=== PATIENT | male | born 1980 | race Hispanic/Latino ===

== ENCOUNTER 2020-06-04 11:54 | Inpatient (IN) | payer OTHER ==
[~2020-06-04] VITALS: Ht 175.3 cm; Wt 124.3 kg
[2020-06-04 13:45] LABS: BASOPHILS % (AUTO) 0.2 % (0.0-5.0); EOSINOPHILS % (AUTO) 0.5 % (0.0-8.0); HEMATOCRIT 45.1 % (42-54); LYMPHOCYTES % (AUTO) 8.3 % (21.0-51.0); MEAN CORPUSCULAR HEMOGLOBIN 28.8 pg (27.0-33.0); MEAN CORPUSCULAR HGB CONC 33.3 g/dL (32.0-36.0); MEAN CORPUSCULAR VOLUME 86.6 fL (79-99); MONOCYTES % (AUTO) 8.2 % (3.0-13.0); NEUTROPHILS % (AUTO) 82.6 % (40.0-77.0); PLATELET COUNT (AUTO) 471 K/uL (130-400); RED BLOOD CELL COUNT(AUTO) 5.21 MIL/uL (4.50-6.20); RED CELL DISTRIBUTION WIDTH 14.2 % (11.0-15.5); WHITE BLOOD COUNT (AUTO) 12.9 K/uL (4.8-10.8)
[2020-06-04 14:05] LABS: APPEARANCE,URINE Clear (CLEAR); BILIRUBIN,URINE Negative (NEGATIVE); COLOR,URINE Dark Yellow (YELLOW); GLUCOSE, URINE (UA) Negative (NEGATIVE); KETONES,URINE Trace mg/dL (NEGATIVE); LEUKOCYTE ESTERASE ,URINE Trace (NEGATIVE); NITRATE,URINE Negative (NEGATIVE); OCCULT BLOOD,URINE Negative (NEGATIVE); PROTEIN,URINE >=1000 mg/dL (NEGATIVE)
[2020-06-04 14:16] LABS: INR 1.12 (0.85-1.15); PROTHROMBIN TIME 11.9 SEC (9.6-11.6)
[2020-06-04 14:18] LABS: PARTIAL THROMBOPLASTIN TIME 27.8 SEC (26.3-35.5)
[2020-06-04 14:25] LABS: BACTERIA,URINE Rare /HPF (None Seen); RBC,URINE 0-1 /HPF (0-1); SQUAMOUS EPITHELIAL CELL,UR Rare /HPF (0-2); WBC,URINE 0-1 /HPF (0-1)
[2020-06-04 14:32] LABS: ALBUMIN 2.9 g/dL (3.5-5.0); BILIRUBIN,TOTAL 0.5 mg/dL (0.2-1.0); CREATININE 1.5 mg/dL (0.5-1.5); POTASSIUM 3.4 mmol/L (3.5-5.1); TOTAL PROTEIN, SERUM 7.5 g/dL (6.0-8.3); TROPONIN I 0.58 ng/mL (0.00-0.06)
[2020-06-04] MEDS ORDERED: ACETAMINOPHEN 325 MG TAB ONE (15:03)
[2020-06-04] MEDS ORDERED: ONDANSETRON HCL 4 MG/2 ML VIAL ONE (15:03)
[2020-06-04] MEDS ORDERED: MORPHINE SULFATE 4 MG/1ML SYG ONE (15:03)
[2020-06-04] MEDS ORDERED: SODIUM CHLORIDE 0.9% 1000ML 3,000 ML IV ONE (15:04)
[2020-06-04] MEDS ORDERED: ZOSYN 3.375GM+NS 50ML 50 ML IV ONE ×2 (15:12→23:26)
[2020-06-04] MEDS ORDERED: ASPIRIN 325 MG TABLET ONE (15:16)
[2020-06-04] MEDS ORDERED: METOPROLOL TARTRATE 1 MG/ML 5ML VIAL IV ONE ×2 (16:49→23:46)
[2020-06-04] MEDS ORDERED: CEFTRIAXONE SODIUM 1 GM IVP SCH (17:00)
[2020-06-04] MEDS ORDERED: METOPROLOL TARTRATE 1 MG/ML 5ML VIAL IV PRN (17:00)
[2020-06-04] MEDS ORDERED: RENAL DOSE IV SCH (17:15)
[2020-06-04] MEDS: ZOSYN 3.375GM+NS 50ML 50 ML IV SCH (17:30)
[2020-06-04] MEDS ORDERED: MORPHINE SULFATE 2 MG/ML 1ML SYG ONE (17:33)
[2020-06-04] MEDS: SODIUM CHLORIDE 0.9% 1000ML 1,000 ML IV SCH (17:45)
[2020-06-04 18:22] LABS: AMPHET/METH SCREEN,URINE NEGATIVE (NEGATIVE); BARBITURATE SCREEN, URINE NEGATIVE (NEGATIVE); BENZODIAZEPINES SCREEN,URINE NEGATIVE (NEGATIVE); CANNABINOID SCREEN,URINE NEGATIVE (NEGATIVE); COCAINE SCREEN,URINE POSITIVE (NEGATIVE); OPIATE SCREEN,URINE NEGATIVE (NEGATIVE); PHENCYCLIDINE SCREEN,URINE NEGATIVE (NEGATIVE)
[2020-06-04] MEDS ORDERED: CEFTRIAXONE SODIUM 1 GM ONE (18:40)
[2020-06-04] MEDS ORDERED: POTASSIUM CHLORIDE 20 MEQ ERTAB PO SCH (19:00)
[2020-06-04] MEDS ORDERED: METOPROLOL TARTRATE 25 MG TAB ONE ×2 (19:03→23:27)
[2020-06-04 19:09] LABS: HEMOGLOBIN A1C 5.7 % (4.0-6.0)
[2020-06-04] MEDS ORDERED: POTASSIUM CHLORIDE 20 MEQ ERTAB PO ONE (19:55)
[2020-06-04] MEDS ORDERED: METOPROLOL TARTRATE 25 MG TAB PO SCH (21:00)
[2020-06-05] MEDS: ZOSYN 3.375GM+NS 50ML 50 ML IV SCH ×3 (01:30→18:39)
[2020-06-05] MEDS: DILTIAZEM HCL 60 MG TABLET PO SCH ×3 (03:45→23:56)
[2020-06-05] MEDS: SODIUM CHLORIDE 0.9% 1000ML 1,000 ML IV SCH ×2 (07:05→20:25)
[2020-06-05 08:05] LABS: BASOPHILS % (AUTO) 0.3 % (0.0-5.0); EOSINOPHILS % (AUTO) 0.6 % (0.0-8.0); HEMATOCRIT 44.1 % (42-54); LYMPHOCYTES % (AUTO) 11.3 % (21.0-51.0); MEAN CORPUSCULAR HEMOGLOBIN 29.1 pg (27.0-33.0); MEAN CORPUSCULAR HGB CONC 33.1 g/dL (32.0-36.0); MEAN CORPUSCULAR VOLUME 87.8 fL (79-99); NEUTROPHILS % (AUTO) 78.5 % (40.0-77.0); PLATELET COUNT (AUTO) 432 K/uL (130-400); RED BLOOD CELL COUNT(AUTO) 5.02 MIL/uL (4.50-6.20); RED CELL DISTRIBUTION WIDTH 14.3 % (11.0-15.5); WHITE BLOOD COUNT (AUTO) 9.6 K/uL (4.8-10.8)
[2020-06-05 08:20] LABS: CREATININE 1.6 mg/dL (0.5-1.5); MAGNESIUM 1.8 mg/dL (1.80-2.40)
[2020-06-05 08:48] LABS: TROPONIN I 0.56 ng/mL (0.00-0.06)
[2020-06-05] MEDS ORDERED: LISI40TA4 PO (08:54)
[2020-06-05] MEDS ORDERED: DILTIAZEM HCL 60 MG TABLET ONE (09:25)
[2020-06-05 13:07] VITALS: BP 159/81
[2020-06-05 16:00] VITALS: BP 130/102
[2020-06-05] MEDS ORDERED: DILTIAZEM HCL 60 MG TABLET PO SCH (16:30)
[2020-06-05 17:09] LABS: CREATININE 1.5 mg/dL (0.5-1.5); MAGNESIUM 1.8 mg/dL (1.80-2.40); POTASSIUM 3.7 mmol/L (3.5-5.1)
[2020-06-05] MEDS: FUROSEMIDE 10 MG/ML 2ML VIAL IV SCH (18:39)
[2020-06-05] MEDS: SPIRONOLACTONE 25 MG TAB PO SCH (18:49)
[2020-06-05 20:00] VITALS: BP 134/95
[2020-06-05] MEDS: LISINOPRIL 20 MG TABLET PO SCH (21:50)
[2020-06-05] MEDS ORDERED: ACETAMINOPHEN 325 MG TAB PO PRN (22:15)
[2020-06-05] MEDS ORDERED: ACETAMINOPHEN 325 MG TAB ONE (22:31)
[2020-06-06] MEDS: ZOSYN 3.375GM+NS 50ML 50 ML IV SCH ×3 (01:53→17:14)
[2020-06-06 03:48] VITALS: BP 130/97
[2020-06-06] MEDS: FUROSEMIDE 10 MG/ML 2ML VIAL IV SCH ×3 (04:19→17:14)
[2020-06-06 06:14] LABS: BASOPHILS % (AUTO) 0.4 % (0.0-5.0); EOSINOPHILS % (AUTO) 0.7 % (0.0-8.0); HEMATOCRIT 44.5 % (42-54); LYMPHOCYTES % (AUTO) 9.9 % (21.0-51.0); MEAN CORPUSCULAR HEMOGLOBIN 28.8 pg (27.0-33.0); MEAN CORPUSCULAR HGB CONC 33.3 g/dL (32.0-36.0); MEAN CORPUSCULAR VOLUME 86.6 fL (79-99); MONOCYTES % (AUTO) 7.6 % (3.0-13.0); NEUTROPHILS % (AUTO) 80.9 % (40.0-77.0); PLATELET COUNT (AUTO) 449 K/uL (130-400); RED BLOOD CELL COUNT(AUTO) 5.14 MIL/uL (4.50-6.20); RED CELL DISTRIBUTION WIDTH 13.9 % (11.0-15.5); WHITE BLOOD COUNT (AUTO) 9.6 K/uL (4.8-10.8)
[2020-06-06 06:32] LABS: CREATININE 1.5 mg/dL (0.5-1.5); MAGNESIUM 1.6 mg/dL (1.80-2.40); POTASSIUM 3.7 mmol/L (3.5-5.1)
[2020-06-06 07:52] VITALS: BP 130/102
[2020-06-06] MEDS: LISINOPRIL 20 MG TABLET PO SCH ×2 (10:01→21:15)
[2020-06-06] MEDS: SODIUM CHLORIDE 0.9% 1000ML 1,000 ML IV SCH (10:02)
[2020-06-06] MEDS: SPIRONOLACTONE 25 MG TAB PO SCH (10:02)
[2020-06-06] MEDS: DILTIAZEM HCL 60 MG TABLET PO SCH ×2 (10:03→15:59)
[2020-06-06 11:44] VITALS: BP 138/96
[2020-06-06 16:00] VITALS: BP 113/73
[2020-06-06] MEDS ORDERED: SIMETHICONE 80 MG TAB.CHEW ONE (17:37)
[2020-06-06 20:29] VITALS: BP 115/94
[2020-06-06 23:49] VITALS: BP 135/87
[2020-06-07] MEDS: DILTIAZEM HCL 60 MG TABLET PO SCH (00:49)
[2020-06-07] MEDS: FUROSEMIDE 10 MG/ML 2ML VIAL IV SCH ×4 (00:50→21:10)
[2020-06-07] MEDS: ZOSYN 3.375GM+NS 50ML 50 ML IV SCH ×3 (00:51→17:11)
[2020-06-07] MEDS: SIMETHICONE 80 MG TAB.CHEW PO PRN (01:00)
[2020-06-07 04:32] LABS: BASOPHILS % (AUTO) 0.4 % (0.0-5.0); EOSINOPHILS % (AUTO) 0.9 % (0.0-8.0); HEMATOCRIT 44.5 % (42-54); LYMPHOCYTES % (AUTO) 8.2 % (21.0-51.0); MEAN CORPUSCULAR HGB CONC 33.3 g/dL (32.0-36.0); MEAN CORPUSCULAR VOLUME 87.1 fL (79-99); MONOCYTES % (AUTO) 7.5 % (3.0-13.0); NEUTROPHILS % (AUTO) 82.6 % (40.0-77.0); PLATELET COUNT (AUTO) 450 K/uL (130-400); RED BLOOD CELL COUNT(AUTO) 5.11 MIL/uL (4.50-6.20); RED CELL DISTRIBUTION WIDTH 14.1 % (11.0-15.5); WHITE BLOOD COUNT (AUTO) 12.3 K/uL (4.8-10.8)
[2020-06-07 04:48] LABS: ALBUMIN 3.1 g/dL (3.5-5.0); BILIRUBIN,TOTAL 0.7 mg/dL (0.2-1.0); CREATININE 1.6 mg/dL (0.5-1.5); POTASSIUM 3.4 mmol/L (3.5-5.1); TOTAL PROTEIN, SERUM 7.5 g/dL (6.0-8.3)
[2020-06-07 05:12] VITALS: BP 145/99
[2020-06-07 08:00] VITALS: BP 119/98
[2020-06-07] MEDS: METOPROLOL SUCCINATE 50 MG TAB.SR.24H PO SCH (09:41)
[2020-06-07] MEDS: SPIRONOLACTONE 25 MG TAB PO SCH (09:42)
[2020-06-07] MEDS: LISINOPRIL 20 MG TABLET PO SCH ×2 (09:42→21:09)
[2020-06-07] MEDS: ENOXAPARIN SODIUM 40 MG/0.4 ML SYRINGE SQ SCH (09:43)
[2020-06-07] MEDS ORDERED: POTASSIUM CHLORIDE 20MEQ/100ML 100 ML IV PRN ×2 (09:45)
[2020-06-07] MEDS: POTASSIUM CHLORIDE 20 MEQ ERTAB PO PRN ×2 (11:22→17:11)
[2020-06-07] MEDS: BUSPIRONE HCL 5 MG TABLET PO SCH ×2 (11:45→21:09)
[2020-06-07 12:00] VITALS: BP 146/123
[2020-06-07 16:00] VITALS: BP 130/97
[2020-06-07] MEDS: MAGNESIUM 2GM PREMIX 50ML 50 ML IV PRN (17:12)
[2020-06-07 20:16] VITALS: BP 131/105
[2020-06-08] MEDS: ZOSYN 3.375GM+NS 50ML 50 ML IV SCH ×3 (00:06→18:23)
[2020-06-08 00:16] VITALS: BP 139/111
[2020-06-08] MEDS ORDERED: DILTIAZEM HCL 5 MG/ML 10 ML VIAL IV ONE (01:42)
[2020-06-08] MEDS ORDERED: DILTIAZEM HCL 5 MG/ML 10 ML VIAL IV SCH ×2 (01:45→09:45)
[2020-06-08] MEDS: SIMETHICONE 80 MG TAB.CHEW PO PRN (01:49)
[2020-06-08] MEDS: METOPROLOL SUCCINATE 50 MG TAB.SR.24H PO SCH ×4 (02:07→22:06)
[2020-06-08 04:16] VITALS: BP 143/94
[2020-06-08 05:17] LABS: BASOPHILS % (AUTO) 0.6 % (0.0-5.0); HEMATOCRIT 43.4 % (42-54); MEAN CORPUSCULAR HEMOGLOBIN 28.6 pg (27.0-33.0); MEAN CORPUSCULAR HGB CONC 33.4 g/dL (32.0-36.0); MEAN CORPUSCULAR VOLUME 85.6 fL (79-99); MONOCYTES % (AUTO) 6.4 % (3.0-13.0); NEUTROPHILS % (AUTO) 79.4 % (40.0-77.0); PLATELET COUNT (AUTO) 480 K/uL (130-400); RED BLOOD CELL COUNT(AUTO) 5.07 MIL/uL (4.50-6.20); WHITE BLOOD COUNT (AUTO) 10.6 K/uL (4.8-10.8)
[2020-06-08 05:34] LABS: BILIRUBIN,TOTAL 0.8 mg/dL (0.2-1.0); CREATININE 1.4 mg/dL (0.5-1.5); POTASSIUM 3.4 mmol/L (3.5-5.1); TOTAL PROTEIN, SERUM 7.6 g/dL (6.0-8.3)
[2020-06-08 08:00] VITALS: BP 148/100
[2020-06-08] MEDS: BUSPIRONE HCL 5 MG TABLET PO SCH ×2 (08:51→22:05)
[2020-06-08] MEDS: FUROSEMIDE 10 MG/ML 2ML VIAL IV SCH ×2 (08:51→16:35)
[2020-06-08] MEDS: LISINOPRIL 20 MG TABLET PO SCH ×2 (08:51→22:05)
[2020-06-08] MEDS: SPIRONOLACTONE 25 MG TAB PO SCH (08:51)
[2020-06-08] MEDS: ENOXAPARIN SODIUM 40 MG/0.4 ML SYRINGE SQ SCH (08:52)
[2020-06-08] MEDS ORDERED: DIGOXIN 250 MCG/ML 2ML AMP IV SCH (10:30)
[2020-06-08] MEDS ORDERED: BUMETANIDE 0.25 MG/ML 10 ML 40 ML IV SCH (10:30)
[2020-06-08 11:51] VITALS: BP 135/106
[2020-06-08] MEDS: POTASSIUM CHLORIDE 20 MEQ ERTAB PO PRN (11:51)
[2020-06-08] MEDS ORDERED: COMPOUND IV MISC 1 EACH IVSOLN MISC PRN (12:15)
[2020-06-08 16:00] VITALS: BP 144/116
[2020-06-08 20:48] VITALS: BP 153/86
[2020-06-09] VITALS (12 sets, daily range): BP systolic 110–140; BP diastolic 62–99
[2020-06-09] MEDS: FUROSEMIDE 10 MG/ML 2ML VIAL IV SCH (00:17)
[2020-06-09] MEDS: ZOSYN 3.375GM+NS 50ML 50 ML IV SCH ×3 (01:56→20:14)
[2020-06-09 03:58] LABS: BASOPHILS % (AUTO) 0.8 % (0.0-5.0); EOSINOPHILS % (AUTO) 2.2 % (0.0-8.0); HEMATOCRIT 42.9 % (42-54); LYMPHOCYTES % (AUTO) 12.2 % (21.0-51.0); MEAN CORPUSCULAR HEMOGLOBIN 28.2 pg (27.0-33.0); MEAN CORPUSCULAR HGB CONC 32.9 g/dL (32.0-36.0); MEAN CORPUSCULAR VOLUME 85.8 fL (79-99); NEUTROPHILS % (AUTO) 76.5 % (40.0-77.0); PLATELET COUNT (AUTO) 434 K/uL (130-400); RED CELL DISTRIBUTION WIDTH 14.1 % (11.0-15.5); WHITE BLOOD COUNT (AUTO) 9.2 K/uL (4.8-10.8)
[2020-06-09 04:12] LABS: ALBUMIN 2.9 g/dL (3.5-5.0); BILIRUBIN,TOTAL 0.9 mg/dL (0.2-1.0); CREATININE 1.4 mg/dL (0.5-1.5); POTASSIUM 3.2 mmol/L (3.5-5.1); TOTAL PROTEIN, SERUM 7.1 g/dL (6.0-8.3)
[2020-06-09] MEDS ORDERED: LIDOCAINE HCL 2% VISCOUS 15 ML UDCUP ONE (08:46)
[2020-06-09] MEDS ORDERED: MIDAZOLAM HCL 1 MG/ML 2ML VIAL ONE (08:47)
[2020-06-09] MEDS ORDERED: FENTANYL CITRATE PF 50 MCG/1 ML 2ML VIAL ONE (08:47)
[2020-06-09] MEDS ORDERED: SPIR25TA PO (09:52)
[2020-06-09] MEDS ORDERED: FURO40TA5 PO (09:52)
[2020-06-09] MEDS ORDERED: METO50TA9 PO (09:52)
[2020-06-09] MEDS ORDERED: APIX5TAB PO (09:52)
[2020-06-09] MEDS: LISINOPRIL 20 MG TABLET PO SCH ×2 (10:10→20:14)
[2020-06-09] MEDS: METOPROLOL SUCCINATE 50 MG TAB.SR.24H PO SCH ×2 (10:11→20:13)
[2020-06-09] MEDS: BUSPIRONE HCL 5 MG TABLET PO SCH ×2 (10:11→20:13)
[2020-06-09] MEDS: POTASSIUM CHLORIDE 10% ELIXIR 20 MEQ/15 ML UDCUP PO PRN ×3 (10:11→14:27)
[2020-06-09] MEDS: SPIRONOLACTONE 25 MG TAB PO SCH (10:11)
[2020-06-09] MEDS: FUROSEMIDE 40 MG TABLET PO SCH ×2 (10:19→16:12)
[2020-06-09] MEDS: APIXABAN 5 MG TABLET PO SCH ×2 (10:20→20:13)
[2020-06-09] MEDS: MAGNESIUM 2GM PREMIX 50ML 50 ML IV PRN (13:03)
[2020-06-10 03:58] LABS: BASOPHILS % (AUTO) 0.7 % (0.0-5.0); EOSINOPHILS % (AUTO) 3.8 % (0.0-8.0); HEMATOCRIT 42.1 % (42-54); LYMPHOCYTES % (AUTO) 13.9 % (21.0-51.0); MEAN CORPUSCULAR HEMOGLOBIN 28.5 pg (27.0-33.0); MEAN CORPUSCULAR HGB CONC 32.8 g/dL (32.0-36.0); MONOCYTES % (AUTO) 7.3 % (3.0-13.0); PLATELET COUNT (AUTO) 418 K/uL (130-400); RED BLOOD CELL COUNT(AUTO) 4.84 MIL/uL (4.50-6.20); WHITE BLOOD COUNT (AUTO) 7.4 K/uL (4.8-10.8)
[2020-06-10 04:00] VITALS: BP 119/60
[2020-06-10 04:07] LABS: CREATININE 1.5 mg/dL (0.5-1.5); POTASSIUM 3.7 mmol/L (3.5-5.1)
[2020-06-10] MEDS: ZOSYN 3.375GM+NS 50ML 50 ML IV SCH (05:09)
[2020-06-10] MEDS: POTASSIUM CHLORIDE 20 MEQ ERTAB PO PRN (05:26)
[2020-06-10] MEDS: METOPROLOL SUCCINATE 50 MG TAB.SR.24H PO SCH (08:07)
[2020-06-10] MEDS: SPIRONOLACTONE 25 MG TAB PO SCH (08:07)
[2020-06-10] MEDS: FUROSEMIDE 40 MG TABLET PO SCH (08:07)
[2020-06-10] MEDS: BUSPIRONE HCL 5 MG TABLET PO SCH (08:07)
[2020-06-10] MEDS: APIXABAN 5 MG TABLET PO SCH (08:07)
[2020-06-10] MEDS: LISINOPRIL 20 MG TABLET PO SCH (08:07)
[2020-06-10] MEDS: POTASSIUM CHLORIDE 10% ELIXIR 20 MEQ/15 ML UDCUP PO PRN (08:08)
[2020-06-10] MEDS: MAGNESIUM 2GM PREMIX 50ML 50 ML IV PRN (08:08)
[2020-06-10] MEDS ORDERED: SLOMG PO (08:16)
[2020-06-10 08:38] VITALS: BP 142/74
[2020-06-10 12:22] VITALS: BP 126/63
== END 2020-06-10 12:45 | disposition home or self-care (01) | DRG 693 ==
LOC: EDH 11:54 → EDHIP 11:55 → 3DH 06-05 12:22 → 3CH 06-07 18:42 → 4DH 06-08 14:21
PROVIDERS: ADMIT Internal Medicine; ATTEND Internal Medicine
PROC: B246ZZ4 Ultrasonography of Right and Left Heart, Transesophageal (ICD-10-PCS; principal; 2020-06-09)
DX: N20.0 Calculus of kidney (principal); I50.43 Acute on chronic combined systolic (congestive) and diastolic (congestive) heart failure; I42.0 Dilated cardiomyopathy; Z16.24 Resistance to multiple antibiotics; I42.7 Cardiomyopathy due to drug and external agent; I13.0 Hypertensive heart and chronic kidney disease with heart failure and stage 1 through stage 4 chronic kidney disease, or unspecified chronic kidney disease; F14.10 Cocaine abuse, uncomplicated; I48.91 Unspecified atrial fibrillation; N18.30 Chronic kidney disease, stage 3 unspecified; K59.00 Constipation, unspecified; D72.829 Elevated white blood cell count, unspecified; E78.5 Hyperlipidemia, unspecified; E66.9 Obesity, unspecified; I25.10 Atherosclerotic heart disease of native coronary artery without angina pectoris; Z20.822 Contact with and (suspected) exposure to COVID-19; F41.9 Anxiety disorder, unspecified; I51.3 Intracardiac thrombosis, not elsewhere classified; Z56.0 Unemployment, unspecified; Z79.899 Other long term (current) drug therapy; Z79.01 Long term (current) use of anticoagulants; Z91.14 Patient's other noncompliance with medication regimen; Z91.19 Patient's noncompliance with other medical treatment and regimen; Z82.49 Family history of ischemic heart disease and other diseases of the circulatory system
CPT/HCPCS: 36415; 71045; 74176; 80048; 80053; 80061; 80305; 81001; 82550; 83036; 83605; 83735; 83874; 83880; 84145; 84443; 84484; 85025; 85610; 85730; 86900; 86901; 87040; 87077; 87088; 87186; 87426; 93005; 93306; 93313; 93356; 99152; 99153; G0378; J0696; J1160; J1650; J1940; J2250; J2270; J2405; J2543; J3010; J3475; J3480; J3490; J7030

== ENCOUNTER 2020-06-12 14:13 | Inpatient (IN) | payer OTHER ==
[~2020-06-12] VITALS: Ht 167.6 cm; Wt 123.0 kg
[~2020-06-12 14:13] MED LIST: APIX5TAB PO; FURO40TA5 PO; LISI40TA4 PO; METO50TA9 PO; SLOMG PO; SPIR25TA PO
[2020-06-12] MEDS ORDERED: ASPIRIN 325 MG TABLET ONE (14:47)
[2020-06-12] MEDS ORDERED: DILTIAZEM HCL 5 MG/ML 10 ML VIAL IV ONE (14:48)
[2020-06-12 14:56] LABS: BASOPHILS % (AUTO) 0.5 % (0.0-5.0); EOSINOPHILS % (AUTO) 0.7 % (0.0-8.0); HEMATOCRIT 46.1 % (42-54); LYMPHOCYTES % (AUTO) 11.8 % (21.0-51.0); MEAN CORPUSCULAR HEMOGLOBIN 28.2 pg (27.0-33.0); MEAN CORPUSCULAR HGB CONC 32.8 g/dL (32.0-36.0); MONOCYTES % (AUTO) 6.6 % (3.0-13.0); NEUTROPHILS % (AUTO) 80.2 % (40.0-77.0); PLATELET COUNT (AUTO) 382 K/uL (130-400); RED BLOOD CELL COUNT(AUTO) 5.36 MIL/uL (4.50-6.20); RED CELL DISTRIBUTION WIDTH 14.2 % (11.0-15.5); WHITE BLOOD COUNT (AUTO) 8.7 K/uL (4.8-10.8)
[2020-06-12 15:00] LABS: CREATININE 1.3 mg/dL (0.5-1.5); POTASSIUM 4.2 mmol/L (3.5-5.1)
[2020-06-12 15:03] LABS: INR 1.17 (0.85-1.15); PROTHROMBIN TIME 12.3 SEC (9.6-11.6)
[2020-06-12 15:04] LABS: PARTIAL THROMBOPLASTIN TIME 28.4 SEC (26.3-35.5)
[2020-06-12 15:05] LABS: ALBUMIN 3.3 g/dL (3.5-5.0); BILIRUBIN,TOTAL 0.7 mg/dL (0.2-1.0); TOTAL PROTEIN, SERUM 7.8 g/dL (6.0-8.3)
[2020-06-12 16:55] LABS: AMPHET/METH SCREEN,URINE NEGATIVE (NEGATIVE); BARBITURATE SCREEN, URINE NEGATIVE (NEGATIVE); BENZODIAZEPINES SCREEN,URINE NEGATIVE (NEGATIVE); CANNABINOID SCREEN,URINE NEGATIVE (NEGATIVE); COCAINE SCREEN,URINE NEGATIVE (NEGATIVE); OPIATE SCREEN,URINE NEGATIVE (NEGATIVE); PHENCYCLIDINE SCREEN,URINE NEGATIVE (NEGATIVE)
[2020-06-12] MEDS ORDERED: POTASSIUM CHLORIDE 20 MEQ ERTAB PO PRN (17:30)
[2020-06-12] MEDS ORDERED: POTASSIUM CHLORIDE 20MEQ/100ML 100 ML IV PRN (17:30)
[2020-06-12] MEDS ORDERED: METOPROLOL SUCCINATE 50 MG TAB.SR.24H PO SCH (17:30)
[2020-06-12] MEDS ORDERED: LIDOCAINE HCL-MPF 1% 2ML VIAL IJ PRN (17:30)
[2020-06-12] MEDS ORDERED: POTASSIUM CHLORIDE 10% ELIXIR 20 MEQ/15 ML UDCUP PO PRN (17:30)
[2020-06-12 17:35] LABS: APPEARANCE,URINE Clear (CLEAR); BILIRUBIN,URINE Negative (NEGATIVE); COLOR,URINE Dark Yellow (YELLOW); GLUCOSE, URINE (UA) Negative (NEGATIVE); KETONES,URINE Negative (NEGATIVE); LEUKOCYTE ESTERASE ,URINE Negative (NEGATIVE); NITRATE,URINE Negative (NEGATIVE); OCCULT BLOOD,URINE Negative (NEGATIVE); PH,URINE 5.5 (5.0-8.0); PROTEIN,URINE 300 mg/dL (NEGATIVE); UROBILINOGEN,URINE 0.2 mg/dL (0.2-1.0)
[2020-06-12] MEDS: ENOXAPARIN SODIUM 120 MG/0.8ML SQ SCH ×2 (18:00→21:00)
[2020-06-12 18:09] LABS: BACTERIA,URINE Few /HPF (None Seen); RBC,URINE 0-1 /HPF (0-1); SQUAMOUS EPITHELIAL CELL,UR Few /HPF (0-2); WBC,URINE 0-1 /HPF (0-1)
[2020-06-12 18:10] LABS: HYALINE CASTS, URINE 0-1 /LPF (0-1 /LPF)
[2020-06-12] MEDS ORDERED: MAGNESIUM 2GM PREMIX 50ML 50 ML IV SCH (18:15)
[2020-06-12] MEDS ORDERED: METOPROLOL SUCCINATE 50 MG TAB.SR.24H PO ONE (18:22)
[2020-06-12] MEDS ORDERED: ENOXAPARIN SODIUM 100 MG/1 ML SQ ONE (18:22)
[2020-06-12 18:27] LABS: HEMOGLOBIN A1C 5.8 % (4.0-6.0)
[2020-06-12 18:28] LABS: ALCOHOL, BLOOD < 3 mg/dL (0-10); THYROID STIMULATING HORMONE 1.65 uIU/mL (0.36-3.74)
[2020-06-12] MEDS ORDERED: THIAMINE HCL 100 MG TABLET PO SCH (19:30)
[2020-06-12] MEDS ORDERED: FOLIC ACID 1 MG TABLET PO SCH (19:30)
[2020-06-12] MEDS: FAMOTIDINE 20MG TAB 20 MG TAB PO SCH (21:00)
[2020-06-12] MEDS: FUROSEMIDE 40 MG TABLET PO SCH (21:00)
[2020-06-12] MEDS ORDERED: FAMOTIDINE 20MG TAB 20 MG TAB ONE (21:06)
[2020-06-12] MEDS ORDERED: THIAMINE HCL 100 MG TABLET ONE (21:06)
[2020-06-12] MEDS ORDERED: FOLIC ACID 1 MG TABLET ONE (21:07)
[2020-06-12] MEDS ORDERED: DILTIAZEM HCL 125 MG/25 ML VIAL IV ONE (21:52)
[2020-06-12] MEDS ORDERED: SODIUM CHLORIDE 0.9% 100 ML IV ONE (21:53)
[2020-06-12 22:30] VITALS: BP 135/72
[2020-06-13] VITALS (7 sets, daily range): BP systolic 134–153; BP diastolic 75–118
[2020-06-13] MEDS ORDERED: DILTIAZEM HCL 125 MG/25 ML 125 MG in SODIUM CHLORIDE 0.9% 100 ML IV PRN ×4 (06:45)
[2020-06-13 06:53] LABS: BASOPHILS % (AUTO) 0.8 % (0.0-5.0); EOSINOPHILS % (AUTO) 1.8 % (0.0-8.0); HEMATOCRIT 45.1 % (42-54); LYMPHOCYTES % (AUTO) 12.9 % (21.0-51.0); MEAN CORPUSCULAR HEMOGLOBIN 28.5 pg (27.0-33.0); MEAN CORPUSCULAR HGB CONC 32.2 g/dL (32.0-36.0); MEAN CORPUSCULAR VOLUME 88.6 fL (79-99); MONOCYTES % (AUTO) 6.1 % (3.0-13.0); NEUTROPHILS % (AUTO) 78.1 % (40.0-77.0); PLATELET COUNT (AUTO) 347 K/uL (130-400); RED BLOOD CELL COUNT(AUTO) 5.09 MIL/uL (4.50-6.20); WHITE BLOOD COUNT (AUTO) 7.7 K/uL (4.8-10.8)
[2020-06-13 07:06] LABS: CREATININE 1.4 mg/dL (0.5-1.5); MAGNESIUM 1.8 mg/dL (1.80-2.40); POTASSIUM 4.5 mmol/L (3.5-5.1)
[2020-06-13] MEDS: LISINOPRIL 20 MG TABLET PO SCH ×2 (09:23→20:08)
[2020-06-13] MEDS: FAMOTIDINE 20MG TAB 20 MG TAB PO SCH ×2 (09:23→20:08)
[2020-06-13] MEDS: FUROSEMIDE 40 MG TABLET PO SCH ×2 (09:24→20:09)
[2020-06-13] MEDS: ENOXAPARIN SODIUM 120 MG/0.8ML SQ SCH (09:24)
[2020-06-13] MEDS: FOLIC ACID 1 MG TABLET PO SCH (09:24)
[2020-06-13] MEDS: THIAMINE HCL 100 MG TABLET PO SCH (09:24)
[2020-06-13] MEDS: METOPROLOL SUCCINATE 50 MG TAB.SR.24H PO SCH ×2 (10:34→20:08)
[2020-06-13] MEDS ORDERED: ACETAMINOPHEN 325 MG TAB ONE (15:52)
[2020-06-13] MEDS: ACETAMINOPHEN 325 MG TAB PO PRN (15:56)
[2020-06-13] MEDS: APIXABAN 5 MG TABLET PO SCH (20:08)
[2020-06-13] MEDS: ONDANSETRON HCL 4 MG/2 ML VIAL IVP PRN (21:30)
[2020-06-14 03:50] VITALS: BP 140/90
[2020-06-14] MEDS: ACETAMINOPHEN 325 MG TAB PO PRN (04:31)
[2020-06-14 07:38] VITALS: BP 132/109
[2020-06-14 08:19] LABS: BASOPHILS % (AUTO) 0.9 % (0.0-5.0); HEMATOCRIT 44.8 % (42-54); LYMPHOCYTES % (AUTO) 11.1 % (21.0-51.0); MEAN CORPUSCULAR HGB CONC 32.1 g/dL (32.0-36.0); MONOCYTES % (AUTO) 5.6 % (3.0-13.0); NEUTROPHILS % (AUTO) 81.1 % (40.0-77.0); PLATELET COUNT (AUTO) 383 K/uL (130-400); RED BLOOD CELL COUNT(AUTO) 5.15 MIL/uL (4.50-6.20); RED CELL DISTRIBUTION WIDTH 14.2 % (11.0-15.5); WHITE BLOOD COUNT (AUTO) 9.3 K/uL (4.8-10.8)
[2020-06-14 08:41] LABS: CREATININE 1.5 mg/dL (0.5-1.5)
[2020-06-14 08:42] LABS: B-TYPE NATRIURETIC PEPTIDE 1100 pg/mL (0-100)
[2020-06-14] MEDS: THIAMINE HCL 100 MG TABLET PO SCH (08:46)
[2020-06-14] MEDS: LISINOPRIL 20 MG TABLET PO SCH ×2 (08:46→20:45)
[2020-06-14] MEDS: METOPROLOL SUCCINATE 50 MG TAB.SR.24H PO SCH ×2 (08:46→20:45)
[2020-06-14] MEDS: FOLIC ACID 1 MG TABLET PO SCH (08:46)
[2020-06-14] MEDS: APIXABAN 5 MG TABLET PO SCH ×2 (08:46→20:45)
[2020-06-14] MEDS: FUROSEMIDE 40 MG TABLET PO SCH (08:46)
[2020-06-14] MEDS: FAMOTIDINE 20MG TAB 20 MG TAB PO SCH ×2 (08:46→20:45)
[2020-06-14] MEDS: MAGNESIUM CHLORIDE 70 MG TABLET.SA PO SCH ×2 (10:30→20:45)
[2020-06-14 11:11] VITALS: BP 142/86
[2020-06-14] MEDS: FUROSEMIDE 10 MG/ML 2ML VIAL IV SCH ×2 (11:39→20:46)
[2020-06-14] MEDS: SPIRONOLACTONE 25 MG TAB PO SCH (11:39)
[2020-06-14 16:31] VITALS: BP 137/107
[2020-06-14 19:59] VITALS: BP 143/96
[2020-06-14 23:10] VITALS: BP 137/101
[2020-06-15] MEDS: ACETAMINOPHEN 325 MG TAB PO PRN (01:28)
[2020-06-15 03:03] VITALS: BP 161/97
[2020-06-15 04:44] LABS: BASOPHILS % (AUTO) 0.8 % (0.0-5.0); EOSINOPHILS % (AUTO) 1.2 % (0.0-8.0); HEMATOCRIT 43.3 % (42-54); LYMPHOCYTES % (AUTO) 12.9 % (21.0-51.0); MEAN CORPUSCULAR HEMOGLOBIN 28.1 pg (27.0-33.0); MEAN CORPUSCULAR HGB CONC 32.6 g/dL (32.0-36.0); MEAN CORPUSCULAR VOLUME 86.4 fL (79-99); MONOCYTES % (AUTO) 6.9 % (3.0-13.0); NEUTROPHILS % (AUTO) 77.9 % (40.0-77.0); PLATELET COUNT (AUTO) 384 K/uL (130-400); RED BLOOD CELL COUNT(AUTO) 5.01 MIL/uL (4.50-6.20); RED CELL DISTRIBUTION WIDTH 14.1 % (11.0-15.5); WHITE BLOOD COUNT (AUTO) 9.1 K/uL (4.8-10.8)
[2020-06-15 04:51] LABS: CREATININE 1.6 mg/dL (0.5-1.5); POTASSIUM 3.9 mmol/L (3.5-5.1)
[2020-06-15 04:56] LABS: B-TYPE NATRIURETIC PEPTIDE 1190 pg/mL (0-100)
[2020-06-15 08:29] VITALS: BP 128/90
[2020-06-15] MEDS: THIAMINE HCL 100 MG TABLET PO SCH (08:38)
[2020-06-15] MEDS: SPIRONOLACTONE 25 MG TAB PO SCH (08:38)
[2020-06-15] MEDS: APIXABAN 5 MG TABLET PO SCH ×2 (08:38→21:39)
[2020-06-15] MEDS: METOPROLOL SUCCINATE 50 MG TAB.SR.24H PO SCH ×2 (08:38→21:41)
[2020-06-15] MEDS: LISINOPRIL 20 MG TABLET PO SCH ×2 (08:38→21:40)
[2020-06-15] MEDS: MAGNESIUM CHLORIDE 70 MG TABLET.SA PO SCH ×2 (08:38→21:40)
[2020-06-15] MEDS: FAMOTIDINE 20MG TAB 20 MG TAB PO SCH ×2 (08:38→21:39)
[2020-06-15] MEDS: FOLIC ACID 1 MG TABLET PO SCH (08:38)
[2020-06-15] MEDS: FUROSEMIDE 10 MG/ML 2ML VIAL IV SCH ×2 (08:39→21:42)
[2020-06-15 11:22] VITALS: BP 140/91
[2020-06-15 16:30] VITALS: BP 142/99
[2020-06-15 20:00] VITALS: BP 136/81
[2020-06-16] VITALS: BP 123/76
[2020-06-16 04:00] VITALS: BP 122/101
[2020-06-16 04:32] LABS: BASOPHILS % (AUTO) 0.7 % (0.0-5.0); EOSINOPHILS % (AUTO) 1.3 % (0.0-8.0); HEMATOCRIT 44.2 % (42-54); LYMPHOCYTES % (AUTO) 15.5 % (21.0-51.0); MEAN CORPUSCULAR HEMOGLOBIN 27.9 pg (27.0-33.0); MEAN CORPUSCULAR HGB CONC 32.4 g/dL (32.0-36.0); MEAN CORPUSCULAR VOLUME 86.2 fL (79-99); MONOCYTES % (AUTO) 6.8 % (3.0-13.0); NEUTROPHILS % (AUTO) 75.4 % (40.0-77.0); PLATELET COUNT (AUTO) 472 K/uL (130-400); RED BLOOD CELL COUNT(AUTO) 5.13 MIL/uL (4.50-6.20); RED CELL DISTRIBUTION WIDTH 14.2 % (11.0-15.5); WHITE BLOOD COUNT (AUTO) 9.9 K/uL (4.8-10.8)
[2020-06-16 05:00] LABS: CREATININE 1.6 mg/dL (0.5-1.5); POTASSIUM 3.9 mmol/L (3.5-5.1)
[2020-06-16 05:28] LABS: B-TYPE NATRIURETIC PEPTIDE 1070 pg/mL (0-100)
[2020-06-16] MEDS ORDERED: LISI-613 PO (07:01)
[2020-06-16 08:00] VITALS: BP 137/100
[2020-06-16] MEDS: THIAMINE HCL 100 MG TABLET PO SCH (09:20)
[2020-06-16] MEDS: MAGNESIUM CHLORIDE 70 MG TABLET.SA PO SCH ×2 (09:20→22:07)
[2020-06-16] MEDS: ACETAMINOPHEN 325 MG TAB PO PRN (09:20)
[2020-06-16] MEDS: FOLIC ACID 1 MG TABLET PO SCH (09:20)
[2020-06-16] MEDS: FAMOTIDINE 20MG TAB 20 MG TAB PO SCH ×2 (09:21→22:08)
[2020-06-16] MEDS: METOPROLOL SUCCINATE 50 MG TAB.SR.24H PO SCH ×2 (09:21→22:08)
[2020-06-16] MEDS: APIXABAN 5 MG TABLET PO SCH ×2 (09:21→22:09)
[2020-06-16] MEDS: LISINOPRIL 20 MG TABLET PO SCH ×2 (09:21→22:09)
[2020-06-16] MEDS: SPIRONOLACTONE 25 MG TAB PO SCH (09:22)
[2020-06-16] MEDS: FUROSEMIDE 10 MG/ML 2ML VIAL IV SCH ×2 (09:23→22:13)
[2020-06-16 12:00] VITALS: BP 150/95
[2020-06-16 16:02] VITALS: BP 112/84
[2020-06-16 20:00] VITALS: BP 141/87
[2020-06-17] VITALS: BP 124/83
[2020-06-17] MEDS: ONDANSETRON HCL 4 MG/2 ML VIAL IVP PRN (00:40)
[2020-06-17 04:00] VITALS: BP 112/94
[2020-06-17 08:00] VITALS: BP 133/66
[2020-06-17] MEDS: FOLIC ACID 1 MG TABLET PO SCH (10:17)
[2020-06-17] MEDS: THIAMINE HCL 100 MG TABLET PO SCH (10:17)
[2020-06-17] MEDS: SPIRONOLACTONE 25 MG TAB PO SCH (10:17)
[2020-06-17] MEDS: APIXABAN 5 MG TABLET PO SCH (10:17)
[2020-06-17] MEDS: MAGNESIUM CHLORIDE 70 MG TABLET.SA PO SCH (10:17)
[2020-06-17] MEDS: METOPROLOL SUCCINATE 50 MG TAB.SR.24H PO SCH (10:17)
[2020-06-17] MEDS: FAMOTIDINE 20MG TAB 20 MG TAB PO SCH (10:18)
[2020-06-17] MEDS: LISINOPRIL 20 MG TABLET PO SCH (10:18)
[2020-06-17 12:00] VITALS: BP 118/85
[2020-06-17 16:00] VITALS: BP 108/64
[2020-06-17] MEDS ORDERED: FUROSEMIDE 40 MG TABLET PO SCH (17:00)
== END 2020-06-17 19:00 | disposition home or self-care (01) | DRG 308 ==
LOC: EDH 14:13 → OBSVTOIN 14:14 → EDHIP 14:14 → 4CH 22:34
PROVIDERS: ADMIT Internal Medicine; ATTEND Internal Medicine
DX: I48.0 Paroxysmal atrial fibrillation (principal); I50.43 Acute on chronic combined systolic (congestive) and diastolic (congestive) heart failure; Z68.41 Body mass index [BMI] 40.0-44.9, adult; I11.0 Hypertensive heart disease with heart failure; I42.0 Dilated cardiomyopathy; N20.0 Calculus of kidney; E78.5 Hyperlipidemia, unspecified; Z79.01 Long term (current) use of anticoagulants; Z79.899 Other long term (current) drug therapy; Z87.442 Personal history of urinary calculi; Z91.14 Patient's other noncompliance with medication regimen; E66.01 Morbid (severe) obesity due to excess calories; Z83.3 Family history of diabetes mellitus; Z82.49 Family history of ischemic heart disease and other diseases of the circulatory system; Z82.3 Family history of stroke
CPT/HCPCS: 36415; 71045; 80048; 80053; 80305; 81001; 82550; 83036; 83735; 83880; 84443; 84484; 85025; 85610; 85730; 93005; 99291; G0378; J1650; J1940; J2405; J3475; J3490